=== PATIENT | female | born 1980 | race Two or more races ===

== ENCOUNTER 2018-11-20 05:16 | Day surgery (SDC) | payer OTHER ==
[2018-11-18 11:29] LABS: APPEARANCE,URINE CLEAR; BILIRUBIN,URINE NEGATIVE (NEGATIVE); COLOR,URINE YELLOW; GLUCOSE, URINE NEGATIVE (NEGATIVE); KETONES,URINE NEGATIVE (NEGATIVE); LEUKOCYTE ESTERASE,URINE NEGATIVE (NEGATIVE); NITRITE,URINE NEGATIVE (NEGATIVE); PROTEIN,URINE NEGATIVE (NEGATIVE); URINE SPECIFIC GRAVITY 1.015; UROBILINOGEN,URINE NEGATIVE mg/dL (<2.0)
[2018-11-18 11:32] LABS: HEMATOCRIT 35.7 % (36.0-47.0); HEMOGLOBIN 12.3 g/dL (12.0-15.5); MEAN CORPUSCULAR HEMOGLOBIN 29.6 pg (27.0-33.4); MEAN CORPUSCULAR HGB CONC 34.5 g/dL (32.0-36.0); MEAN CORPUSCULAR VOLUME 86 fl (80-97); PLATELET COUNT 280 10^3/uL (150-450); RED BLOOD COUNT 4.16 10^6/uL (3.72-5.28); RED CELL DISTRIBUTION WIDTH 12.9 % (11.5-14.0); WHITE BLOOD COUNT 5.7 10^3/uL (4.0-10.5)
[2018-11-18 12:13] LABS: ANION GAP 6 (5-19); BLOOD UREA NITROGEN 13 mg/dL (7-20); CALCIUM 9.4 mg/dL (8.4-10.2); CARBON DIOXIDE 29 mmol/L (22-30); CHLORIDE 101 mmol/L (98-107); GLUCOSE 91 mg/dL (75-110); POTASSIUM 3.8 mmol/L (3.6-5.0); SODIUM 135.9 mmol/L (137-145)
[~2018-11-20 05:16] MED LIST: CEFAZOLIN 1 GM/D5W RTU 1 GM/50 ML RTUPB IV ONE; CEFAZOLIN 1 GM/D5W RTU 1 GM/50 ML RTUPB IV PRN; LACTATED RINGERS 1000 ML IV PRN; LIDOCAINE 0.5% INJ-PF (5 MG/ML) 50 ML SDV SUBCUT PRN
[2018-11-20] MEDS ORDERED: FENTANYL CITRATE INJ/PF 100 MCG/2 ML AMPUL ONE (06:49)
[2018-11-20] MEDS ORDERED: ONDANSETRON HCL INJ/PF 4 MG/2 ML SDV ONE (06:49)
[2018-11-20] MEDS ORDERED: DEXAMETHASONE SOD PHOSPHATE INJ 4 MG/1 ML VIAL ONE (06:49)
[2018-11-20] MEDS ORDERED: MIDAZOLAM 2 MG/2 ML INJ ONE (06:49)
[2018-11-20] MEDS ORDERED: PROPOFOL INJ 200 MG/20 ML VIAL IV ONE (06:50)
[2018-11-20] MEDS ORDERED: LIDOCAINE 1% INJ-PF (10 MG/ML) 30 ML SDV ONE (07:06)
[2018-11-20] MEDS ORDERED: FENTANYL CITRATE INJ/PF 100 MCG/2 ML AMPUL IV PRN ×3 (07:36)
[2018-11-20] MEDS ORDERED: MEPERIDINE HCL/PF INJ 25 MG/1 ML DISP.SYRIN IV PRN (07:36)
[2018-11-20] MEDS ORDERED: DIPHENHYDRAMINE HCL 50 MG/ML VIAL IV PRN (07:36)
[2018-11-20] MEDS ORDERED: MORPHINE SULFATE 10 MG/ML INJ IV PRN (07:36)
[2018-11-20] MEDS ORDERED: PROMETHAZINE HCL INJ 25 MG/1 ML VIAL IV PRN ×2 (07:36)
[2018-11-20] MEDS ORDERED: OXYCODONE-ACETAMINOPHEN 5-325 MG TABLET ONE (08:25)
[2018-11-20] MEDS ORDERED: OXYCODONE-ACETAMINOPHEN 5-325 MG TABLET PO PRN (08:28)
[2018-11-20] MEDS ORDERED: MORPHINE SULFATE 10 MG/ML INJ INJ PRN (08:31)
--- NOTE | 2018-11-20 09:08 | OPERATIVE REPORT E ---
Operative Report NAME: DELGADO MUNROE : 1980 AGE: 38Y DATE OF SURGERY: 11/20/2018 ROOM: PREOPERATIVE DIAGNOSIS: Menorrhagia. POSTOPERATIVE DIAGNOSIS: Menorrhagia. PROCEDURE: Hysteroscopy and Novasure ablation. SURGEON: CATHI LEES M.D. COMPLICATIONS: None. ANESTHESIA: LMA. FINDINGS: A normal-appearing uterus. No fibroids or polyps were noted. A 5.5 length, 3.5 width, 1 minute 45 second burn was done. INDICATIONS FOR PROCEDURE: The patient had profuse bleeding unresponsive to usual outpatient management, desires attempt at definitive therapy. Other options were given as far as management. The usual risks of bleeding, infection, anesthesia, and damage to organs and tissues was discussed and the patient understood. She understands no is to be done after this procedure. DESCRIPTION OF PROCEDURE: The patient was taken to the operating room and placed in the modified lithotomy position. After adequate anesthesia was ascertained, prepped and draped in the usual manner for a hysteroscopy ablation. Exam under anesthesia performed after surgical timeout performed and antibiotics had been given. Uterine measurements were taken and hysteroscopy ensued. Novasure device was inserted and deployed and fired. Rehysteroscopy demonstrated good integrity post burn. At completion of procedure, all instruments were removed. Bleeding was nil. The patient was taken to recovery in stable condition. DICTATING PHYSICIAN: CATHI LEES M.D. [id number] PHY#: [id number] ID: [id number] JOB#: [id number] ACCT: [id number] cc:CATHI LEES M.D. >
[2018-11-20 09:49] VITALS: BP 124/73
[2018-11-20] MEDS ORDERED: IBUPROFEN 800 MG TABLET PO SCH (14:00)
== END 2018-11-20 09:20 | disposition home or self-care (01) ==
LOC: OROUT 05:16
PROVIDERS: ATTEND Specialist
DX: N92.0 Excessive and frequent menstruation with regular cycle (principal)
CPT/HCPCS: 58563; 86900; 86901; 36415; 86850; 85027; 81025; 80048; 81001; J2250; J0690; J1100; J3010; J2405; J2704; 952; J3490